=== PATIENT | female | born 1935 | race Caucasian/White ===

== ENCOUNTER 2017-07-14 10:38 | Inpatient (IN) | payer MEDICARE ==
[~2017-07-14] VITALS: Ht 162.6 cm; Wt 60.8 kg
[~2017-07-14 10:38] MED LIST: CARV12.5 PO; CARV25TA2 PO; CLOP75TA28 PO; INSU100V27 SQ; INSU100V7 SUBQ; LOSA50TA3 PO; PANT40TA3 PO; SIMV20TA PO
[2017-07-14 10:54] VITALS: BP 177/74; PULSE 64; RESP 18; O2SAT 97
--- NOTE | 2017-07-14 11:10 | ED.REPORT ---
HPI-Dyspnea / Wheezing Date of Service Jul 14, 2017 ED Provider: Jack Kendall MD Patient is an 81 year old female with a history of CHF, hypertension, CAD, diabetes and CVA who presents to the ED complaining of a productive cough. Associated symptoms include generalized weakness, decreased appetite and fatigue. The patient reports that she also has a blocked salivary gland that causes her pain when she tries to eat or drink. Patient denies fever or extremity swelling. She also notices that her cough is exacerbated with eating or drinking. The patient had pneumonia last month and has been off antibiotics for the past few weeks. She has been seen at multiple other hospitals where she has had a normal workup that no longer showed pneumonia. The patient saw her primary care physician 3 days ago after experiencing an episode of chest pressure that has since resolved. Nursing Notes Stated Complaint: WORSENING PNEUMONIA Chief Complaint: General Complaint Nursing Notes Reviewed: Yes Allergies: Coded Allergies: Penicillins (Verified Allergy, Intermediate, Rash, 07/14/17) NSAIDS (Non-Steroidal Anti-Inflamma (Verified Adverse Reaction, Severe, BLEEDING ULCERS, 07/14/17) GI bleeding aspirin (Verified Adverse Reaction, Severe, BLEEDING ULCERS, 07/14/17) amlodipine besylate (Verified Adverse Reaction, Intermediate, MIGRAINES, ) Scheduled Carvedilol (Carvedilol) 25 Mg Tablet 25 MG PO BID Clopidogrel (Clopidogrel) 75 Mg Tablet 75 MG PO QAM Insulin Glargine (Lantus U100 Insulin Vial) 100 Unit/Ml Vial 25 UNITS SUBQ QAM Insulin Regular, Human (Novolin-R U100 Insulin Vial) 100 Unit/1 Ml Vial 3-5 UNITS SQ DAILYWL Losartan Potassium (Cozaar) 50 Mg Tablet 50 MG PO BID Pantoprazole DR (Pantoprazole DR) 40 Mg Tablet.dr 40 MG PO QAM Simvastatin (Zocor) 20 Mg Tablet 20 MG PO HS Scheduled PRN Acetaminophen (Acetaminophen) 325 Mg Tablet 325 MG PO Q6H PRN PRN Headache Albuterol HFA (Proair HFA) 8.5 Gm Hfa.aer.ad 2 PUFFS INHALATION Q4H PRN PRN For Shortness of Breath General Time Seen by MD: 11:06 Chief Complaint Cough Hx Obtained From: Patient Arrived By: Walk-in Sudden in Onset?: No Onset Occurred: More than a week ago... Symptom Duration: Since onset Severity: Current: No pain currently Recent Healthcare: Recent doctor visit Similar Sx Previous: Yes Past Medical History Past Medical History CVA CHF CAD hypertension Reports: Stroke Past Surgical History Cataract surgery Pacemaker CABG Smoking History Former Smoker Social History Lives on [facility] Alcohol Use: Denies alcohol use Drug Use: Denies drug use Other Social History: Good social support, Ambulatory Status Independent Review of Systems Review of Systems Note: +decreased appetite Constitutional: Reports: Fatigue, Weakness - generalized, Denies: Chills, Fever Ears / Nose / Throat: Reports: Throat pain Respiratory: Reports: Prod cough, clear Cardiovascular: Denies: Chest pain Skin: Denies Itching, Denies Rash Complete sys rev & neg: except as marked. Physical Exam Initial Vital Signs Vital Signs (First) Date Time Temp Pulse Resp B/P Pulse Ox O2 Delivery O2 Flow Rate FiO2 07/14/17 10:54 36.4 64 18 177/74 97 Room Air Initial VS: Reviewed General/Constitutional: Awake, Alert Neck: Atraumatic, Supple small 1cm mass on the right side of the neck Respiratory / Chest: Atraumatic, Breath sounds NL, Breath sounds = bilat, No respiratory distress Cardiovascular: Heart rate NL, Regular rhythm, Heart sounds NL Lower Extremity / Pelvis / MS: Atraumatic, No edema Skin: Atraumatic, Color NL, No rash, Warm, Dry Neurologic: Oriented X3, Speech NL Head / Eyes: Atraumatic, Normocephalic, PERRL, EOMI Interpretation & Diagnostics Lab Results Interpretation Result Diagram: 07/14/17 1208 07/14/17 1208 Test 07/14/17 11:00 07/14/17 12:08 Urine Color Yellow (YELLOW) Urine Appearance Clear (CLEAR,HAZY) Urine pH 7.5 (5.0-8.0) Urine Specific [place] 1.006 (1.003-1.035) Urine Protein Negativemg/dL (NEG,TRACE) Urine Glucose (UA) Negativemg/dL (NEGATIVE) Urine Ketones Negativemg/dL (NEGATIVE) Urine Occult Blood Negative (NEGATIVE) Urine Nitrite Negative (NEGATIVE) Urine Bilirubin Negative (NEGATIVE) Urine Urobilinogen Normalmg/dL (NORMAL) Urine Leukocyte Esterase Negative (NEGATIVE) Urine RBC 0-2/hpf (0-2) Urine WBC 0-5/hpf (0-5) Urine Epithelial Cells Moderate/hpf (NONE-MOD) Urine Crystals None seen (NONE SEEN) Urine Bacteria None/hpf (NONE-FEW) Urine Hyaline Casts None/lpf (NONE) Urine Granular Casts None seen (NONE SEEN) Urine Waxy Casts None seen (NONE SEEN) Urine Red Blood Cell Casts None seen (NONE SEEN) Urine White Blood Cell Casts None seen (NONE SEEN) Urine Mucus None seen (None Seen) Urine Trichomonas None seen (NONE SEEN) Urine Yeast None (NONE SEEN) Urinalysis Comment None Urine Culture Reflexed Not indicated White Blood Count 6.9th/mm3 (3.8-10.1) Red Blood Count 4.46mil/mm3 (3.90-5.20) Hemoglobin 13.1g/dL (12.0-15.6) Hematocrit 39.1% (35.0-46.0) Mean Corpuscular Volume 87.7fL (81-100) Mean Corpuscular Hemoglobin 29.4pg (27.0-35.0) Mean Corpuscular Hemoglobin Concent 33.5% (32.0-37.0) Red Cell Distribution Width 13.6% (12.3-15.4) Platelet Count 235bil/L (150-400) Neutrophils (%) (Auto) 79.0% (40-74) Lymphocytes (%) (Auto) 14.2% (14-46) Monocytes (%) (Auto) 5.3% (4-12) Eosinophils (%) (Auto) 1.0% (0-5) Basophils (%) (Auto) 0.4% (0-3) D-Dimer 0.60mg/L FEU (<0.50) Sodium Level 132mEq/L (134-144) Potassium Level 4.3mEq/L (3.5-5.2) Chloride Level 94mEq/L (97-108) Carbon Dioxide Level 22mmol/L (18-29) Blood Urea Nitrogen 13mg/dL (8-27) Creatinine 0.72mg/dL (0.57-1.00) Estimat Glomerular Filtration Rate 111mL/min (>59) Glucose Level 87mg/dL (60-99) Calcium Level 9.9mg/dL (8.5-10.1) Total Bilirubin 0.5mg/dL (0.0-1.2) Aspartate Amino Transf (AST/SGOT) 18U/L (0-50) Alanine Aminotransferase (ALT/SGPT) 9U/L (0-32) Alkaline Phosphatase 62U/L (25-165) Troponin T 0.010ug/L (0.0-0.011) Pro-B-Type Natriuretic Peptide 1277pg/mL (0-738) Total Protein 7.0g/dL (6.4-8.4) Albumin 3.9g/dL (3.4-5.0) ECG Interpretation ECG Interpretation: paced rhythm Time: 11:11 Interpreted by: ED physician Normal ECG Interpretation: Normal rate (62) X-Ray Chest Interpretation Chest Xray Interpretation: IMPRESSION: 1. No evidence of pneumonia. Dictated by: Jagdish Hernández M.D. on 07/14/2017 at 11:57 Approved by: Jagdish Hernández M.D. on 07/14/2017 at 11:57 Interpretation / Wet Read by: Interpret - Radiologist CT Chest Interpretation IMPRESSION: 1. No evidence of central pulmonary embolism. Evaluation of distal subsegmental branches is limited due to respiratory motion artifact. 2. Bilateral groundglass opacities and septal thickening in the lungs compatible with pulmonary edema. Dictated by: Jagdish Hernández M.D. on 07/14/2017 at 14:54 Approved by: Jagdish Hernández M.D. on 07/14/2017 at 14:56 Study type: CT pulm angiogram Interpretation / Wet Read by: Interpret - Radiologist Re-Eval/Medical Decision Med Decision/Clinical Course Patient with a number of weeks of cough and shortness of breath and mild chest pain. Extensive history of coronary artery disease with no recent stress test. Also diabetic. Remote history of smoking. Imaging and lab her today consistent with some mild degree of congestive heart failure though ischemic pain is not excluded here in the emergency department. I believe it appeared of observation the hospital is appropriate to further elucidate elucidate the cause of his symptoms. Re-Evaluation/Progress #1: Time of Eval: 11:48 Re-Evaluation/Progress Note: Discussed plan for admit. Patient understands and agrees to plan. All questions were addressed. Re-Evaluation/Progress #2: Time of Eval: 15:29 Re-Evaluation/Progress Note: Discussed CT results. Consultation : Referral / Consult Name: Clau Porras MD Consulted With: Hospitalist Call Returned at: 15:30 Technology Education Instructor: Agrees with eval, Agrees with plan, Accepts admit Counseled Regarding: Diagnosis, Lab results, Need for admission Discharge & Departure Impression: Primary Impression: Chest pain Additional Impression: Congestive heart failure Disposition: ADMITTED TO HOSPITAL Discharge Condition All VS Reviewed: Yes Condition: Stable Referrals: Russell Gray MD (PCP) Scribe Attestation Portions of this note were transcribed by Arlen Clemente. I, Dr. Kendall personally performed the history, physical exam and medical decision-making; I reviewed and confirmed the accuracy of the information in the transcribed note. Signed by: Melissa Araujo, 07/14/17 copies to: Russell Gray MD, Kirk H MD Jul 14, 2017 11:10 Nory Clemente Jul 14, 2017 11:24
--- NOTE | 2017-07-14 11:59 | DRSVH ---
PROCEDURE: X-RAY CHEST, TWO VIEWS ([id number]) INDICATIONS: pneumonia TECHNIQUE: 2 views of the chest were acquired. COMPARISON: [facility], , CHEST 1 VIEW, 07/04/2017, 9:45. FINDINGS: Surgical changes and devices: Left chest wall dual-lead pacemaker and leads appear similar in positio n. Postsurgical changes are redemonstrated in the mediastinum. Lungs and pleura: No pleural effusions or pneumothorax. Visualized lungs are clear without consolid ation. Mediastinum: Mediastinal contours are unchanged. Heart size is normal. Bones and chest wall: No suspicious bony abnormalities. Soft tissues appear unremarkable. IMPRESSION: 1. No evidence of pneumonia. Dictated by: Jagdish Hernández M.D. on 07/14/2017 at 11:57 Approved by: Jagdish Hernández M.D. on 07/14/2017 at 11:57
[2017-07-14 12:33] LABS: BASOPHILS % (AUTO) 0.4 % (0-3); MONOCYTES % (AUTO) 5.3 % (4-12); Mean Corpuscular Hemoglobin 29.4 pg (27.0-35.0); Mean Corpuscular Volume 87.7 fL (81-100); Platelet Count 235 bil/L (150-400)
[2017-07-14 12:45] LABS: COLOR,URINE YELLOW (YELLOW)
[2017-07-14 12:46] LABS: APPEARANCE,URINE CLEAR (CLEAR,HAZY); OCCULT BLOOD,URINE NEGATIVE (NEGATIVE); PH,URINE 7.5 (5.0-8.0); UROBILINOGEN,URINE NORMAL (NORMAL)
[2017-07-14 12:57] LABS: TROPONIN T 0.01 ug/L (0.0-0.011)
[2017-07-14] MEDS ORDERED: INSU100V27 SQ (14:19)
[2017-07-14] MEDS ORDERED: ACET325T51 PO (14:32)
[2017-07-14] MEDS ORDERED: ALBU8.5H2 INHALATION (14:32)
--- NOTE | 2017-07-14 14:58 | DRSVH ---
PROCEDURE: CT ANGIO CHEST PULMONARY EMBOLISM ([id number]) INDICATIONS: chest pain TECHNIQUE: After the administration of intravenous contrast, 2 mm thick sections acquired from the pulmonary api yenni to the posterior costophrenic angles. 3-dimensional maximum intensity projection (MIP) coronal a nd sagittal reformats were then acquired through the thorax. For radiation dose reduction, the follo wing was used: automated exposure control, adjustment of mA and/or kV according to patient size. COMPARISON: [facility], CR, XR CHEST 2VW, 07/14/2017, 11:24. FINDINGS: Image quality: There is mild respiratory motion artifact. Pulmonary arteries: Pulmonary arteries are normal in size, and demonstrate no intraluminal filling d efects to suggest central pulmonary embolism. Evaluation of subsegmental branches is limited due to respiratory motion artifact. Lungs and pleura: There are patchy bilateral ground glass opacities in the lungs with mild septal th ickening. Mild dependent atelectasis is present bilaterally. No focal consolidation. No pleural ef fusions or pneumothorax. Central and peripheral airways are patent. Mediastinum: Heart size is normal, without pericardial effusion. There is extensive coronary arteri al vascular calcification. No mediastinal or hilar adenopathy. Thoracic aorta is normal in caliber a nd enhancement. Esophagus is normal in caliber, with a small hiatal hernia. Bones and chest wall: No suspicious bony lesions. Ribs and thoracic spine appear intact throughout. No axillary or supraclavicular adenopathy. Abdomen: Visualized upper abdominal solid organs appear normal in the early arterial phase of enhanc ement. IMPRESSION: 1. No evidence of central pulmonary embolism. Evaluation of distal subsegmental branches is limited due to respiratory motion artifact. 2. Bilateral groundglass opacities and septal thickening in the lungs compatible with pulmonary melanie a. Dictated by: Jagdish Hernández M.D. on 07/14/2017 at 14:54 Approved by: Jagdish Hernández M.D. on 07/14/2017 at 14:56
[2017-07-14] MEDS ORDERED: Polyethylene Glycol (PEG) 17 Gm Powder PO PRN (16:10)
[2017-07-14] MEDS ORDERED: Alum-Mag Hydrox-Simeth 30 mL Suspension PO PRN (16:10)
[2017-07-14] MEDS ORDERED: Senna-Docusate 8.6-50 mg Tablet PO PRN (16:10)
[2017-07-14] MEDS ORDERED: Nitroglycerin 2% 1 Gm Ointment TOPICAL ONE (16:20)
[2017-07-14 16:28] VITALS: BP 177/112; PULSE 65; RESP 16; O2SAT 98
--- NOTE | 2017-07-14 16:29 | PCM.HPMED ---
Subjective Date of Service Jul 14, 2017 Primary Provider: Admitting Physician: Clau Porras MD Primary Care Physician: Russell Gray MD Attending Physician: Clau Porras MD Admit Status: From the Emergency Department, Full Admit, Remote Telemetry Chief Complaint: Shortness of breath, cough History of Present Illness: Is a pleasant 81-year-old female who over the past month has been having progressive symptoms of increasing shortness of breath. She notes cough sometimes productive of some white sputum. She denies any fevers or chills. She was placed on some antibiotics with no improvement in her symptoms by her primary care provider. She also feels more short of breath when she is lying down at night. She also notes that she has some chest pressure and arm pressure occurring at times mostly when she is lying down. She notes that the chest pressure may last for an hour or so. She does have a history of coronary artery disease with a CABG 4 in July 2000 and a pacemaker placed in 2006. Her turning sander tender is Dr. Hermes Fenton. Evaluation in the emergency room revealed a slightly high d-dimer chest x-ray was negative. She then had CTA of chest which showed no evidence of central pulmonary emboli. Some respiratory motion artifact to evaluate the distal sub-segmental branches. But did see bilateral groundglass opacities and septal thickening in the lungs compatible with pulmonary edema. Her troponin was noted to be 0.01. Review of Systems: Patient does admit to some mild nausea. Denies any vomiting denies any diaphoresis. All other review of systems are negative except for as in history of present illness. Allergies Coded Allergies: Penicillins (Verified Allergy, Intermediate, Rash, 07/14/17) NSAIDS (Non-Steroidal Anti-Inflamma (Verified Adverse Reaction, Severe, BLEEDING ULCERS, 07/14/17) GI bleeding aspirin (Verified Adverse Reaction, Severe, BLEEDING ULCERS, 07/14/17) amlodipine besylate (Verified Adverse Reaction, Intermediate, MIGRAINES, ) Home Medications Scheduled Carvedilol (Carvedilol) 25 Mg Tablet 25 MG PO BID Clopidogrel (Clopidogrel) 75 Mg Tablet 75 MG PO QAM Insulin Glargine (Lantus U100 Insulin Vial) 100 Unit/Ml Vial 25 UNITS SUBQ QAM Insulin Regular, Human (Novolin-R U100 Insulin Vial) 100 Unit/1 Ml Vial 3-5 UNITS SQ DAILYWL Losartan Potassium (Cozaar) 50 Mg Tablet 50 MG PO BID Pantoprazole DR (Pantoprazole DR) 40 Mg Tablet.dr 40 MG PO QAM Simvastatin (Zocor) 20 Mg Tablet 20 MG PO HS Scheduled PRN Acetaminophen (Acetaminophen) 325 Mg Tablet 325 MG PO Q6H PRN PRN Headache Albuterol HFA (Proair HFA) 8.5 Gm Hfa.aer.ad 2 PUFFS INHALATION Q4H PRN PRN For Shortness of Breath PMH Past Medical History CVA CHF CAD hypertension Reports: Stroke Past Surgical History Cataract surgery Pacemaker CABG Family History Has a family history of sun who in his late 30s of congestive heart failure. Daughter who was diagnosed with a brain aneurysm. Granddaughter who has polycystic kidney disease. Social History Hx Alcohol Use: No Hx Substance Use: No Hx Tobacco Use: Yes (quit in 1974) Smoking Status: Former Smoker (quit 40 years ago) Living Arrangement: with Family Exam Vital Signs Vital Sign - Last Date Time Temp Pulse Resp B/P Pulse Ox O2 Delivery O2 Flow Rate FiO2 07/14/17 10:54 36.4 64 18 177/74 97 Room Air Exam Constitutional: Elderly female who appears comfortable and conversant but does have some episodic coughing Head: Normocephalic atraumatic Eyes: PERRLA DC EOMI Mouth: No lesions Neck: Carotid specific workup or wheezes Chest: Does reveal crackles at her bases Cor: Regular rate and rhythm S1-S2 without murmur Abdomen: Soft nontender bowel sounds present Extremities: No pedal edema Skin: No rashes Psych: Mood and affect are appropriate Neuro: Alert and oriented 3, motor strength is intact bilaterally Lab and Diagnostics Labs Laboratory Tests 72 Hours Test 07/14/17 11:00 07/14/17 12:08 Urine Color Yellow (YELLOW) Urine Appearance Clear (CLEAR,HAZY) Urine pH 7.5 (5.0-8.0) Urine Specific [place] 1.006 (1.003-1.035) Urine Protein Negativemg/dL (NEG,TRACE) Urine Glucose (UA) Negativemg/dL (NEGATIVE) Urine Ketones Negativemg/dL (NEGATIVE) Urine Occult Blood Negative (NEGATIVE) Urine Nitrite Negative (NEGATIVE) Urine Bilirubin Negative (NEGATIVE) Urine Urobilinogen Normalmg/dL (NORMAL) Urine Leukocyte Esterase Negative (NEGATIVE) Urine RBC 0-2/hpf (0-2) Urine WBC 0-5/hpf (0-5) Urine Epithelial Cells Moderate/hpf (NONE-MOD) Urine Crystals None seen (NONE SEEN) Urine Bacteria None/hpf (NONE-FEW) Urine Hyaline Casts None/lpf (NONE) Urine Granular Casts None seen (NONE SEEN) Urine Waxy Casts None seen (NONE SEEN) Urine Red Blood Cell Casts None seen (NONE SEEN) Urine White Blood Cell Casts None seen (NONE SEEN) Urine Mucus None seen (None Seen) Urine Trichomonas None seen (NONE SEEN) Urine Yeast None (NONE SEEN) Urinalysis Comment None Urine Culture Reflexed Not indicated White Blood Count 6.9th/mm3 (3.8-10.1) Red Blood Count 4.46mil/mm3 (3.90-5.20) Hemoglobin 13.1g/dL (12.0-15.6) Hematocrit 39.1% (35.0-46.0) Mean Corpuscular Volume 87.7fL (81-100) Mean Corpuscular Hemoglobin 29.4pg (27.0-35.0) Mean Corpuscular Hemoglobin Concent 33.5% (32.0-37.0) Red Cell Distribution Width 13.6% (12.3-15.4) Platelet Count 235bil/L (150-400) Neutrophils (%) (Auto) 79.0% (40-74) Lymphocytes (%) (Auto) 14.2% (14-46) Monocytes (%) (Auto) 5.3% (4-12) Eosinophils (%) (Auto) 1.0% (0-5) Basophils (%) (Auto) 0.4% (0-3) D-Dimer 0.60mg/L FEU (<0.50) Sodium Level 132mEq/L (134-144) Potassium Level 4.3mEq/L (3.5-5.2) Chloride Level 94mEq/L (97-108) Carbon Dioxide Level 22mmol/L (18-29) Blood Urea Nitrogen 13mg/dL (8-27) Creatinine 0.72mg/dL (0.57-1.00) Estimat Glomerular Filtration Rate 111mL/min (>59) Glucose Level 87mg/dL (60-99) Calcium Level 9.9mg/dL (8.5-10.1) Total Bilirubin 0.5mg/dL (0.0-1.2) Aspartate Amino Transf (AST/SGOT) 18U/L (0-50) Alanine Aminotransferase (ALT/SGPT) 9U/L (0-32) Alkaline Phosphatase 62U/L (25-165) Troponin T 0.010ug/L (0.0-0.011) Pro-B-Type Natriuretic Peptide 1277pg/mL (0-738) Total Protein 7.0g/dL (6.4-8.4) Albumin 3.9g/dL (3.4-5.0) Result Diagram: 07/14/17 1208 07/14/17 1208 X-Rays, CTs and MRIs PROCEDURE: CT ANGIO CHEST PULMONARY EMBOLISM ([id number]) INDICATIONS: chest pain TECHNIQUE: After the administration of intravenous contrast, 2 mm thick sections acquired from the pulmonary apices to the posterior costophrenic angles. 3-dimensional maximum intensity projection (MIP) coronal and sagittal reformats were then acquired through the thorax. For radiation dose reduction, the following was used: automated exposure control, adjustment of mA and/or kV according to patient size. COMPARISON: [facility], CR, XR CHEST 2VW, 07/14/2017, 11:24. FINDINGS: Image quality: There is mild respiratory motion artifact. Pulmonary arteries: Pulmonary arteries are normal in size, and demonstrate no intraluminal filling defects to suggest central pulmonary embolism. Evaluation of subsegmental branches is limited due to respiratory motion artifact. Lungs and pleura: There are patchy bilateral ground glass opacities in the lungs with mild septal thickening. Mild dependent atelectasis is present bilaterally. No focal consolidation. No pleural effusions or pneumothorax. Central and peripheral airways are patent. Mediastinum: Heart size is normal, without pericardial effusion. There is extensive coronary arterial vascular calcification. No mediastinal or hilar adenopathy. Thoracic aorta is normal in caliber and enhancement. Esophagus is normal in caliber, with a small hiatal hernia. Bones and chest wall: No suspicious bony lesions. Ribs and thoracic spine appear intact throughout. No axillary or supraclavicular adenopathy. Abdomen: Visualized upper abdominal solid organs appear normal in the early arterial phase of enhancement. IMPRESSION: 1. No evidence of central pulmonary embolism. Evaluation of distal subsegmental branches is limited due to respiratory motion artifact. 2. Bilateral groundglass opacities and septal thickening in the lungs compatible with pulmonary edema. Dictated by: Jagdish Hernández M.D. on 07/14/2017 at 14:54 Approved by: Jagdish Hernández M.D. on 07/14/2017 at 14:56 12-lead ECG AV dual paced complexes with a rate of 62 and QTC 42 Cardiac Echo Impressions Echocardiogram Report Name: AMANDEEP VILCHIS Study Date: 08/24/2012 Height: 64 in Hospital Exam Location: [facility] Weight: 130 lb Gender: Female BSA: 1.6 meters2 : 1935 Age: 77 yrs BP: 110/52 mmHg Reason For Study: Chest pain History: CABG X 4 IN 1999 Ordering Physician: Hermes Fenton Performed By: Carlos Wright Interpretation Summary Left ventricular systolic function is normal. The ejection fraction is estimated to be 55-60%. There is a pacemaker lead in the right ventricle. Right atrial size is normal. There is mild to moderate tricuspid regurgitation. Compared to the prior echo exam, there has been no change in TR severity. No other signficant changes since last echo study of 12/11/2010. Assessment & Plan # Acute congestive heart failure, unclear if diastolic versus systolic, present on admission -Get current echocardiogram study -IV Lasix 40 mg twice a day -Apply nitro paste topically half-inch 1 -Serial cardiac enzymes -Placed on telemetry -Continue with Plavix -Check Lexiscan nuclear stress test in a.m. -Continue with Coreg and losartan #History of coronary artery disease, present on admission -We will check nuclear Lexiscan stress test #Type II diabetes, chronic, present on admission -Continue her Lantus dosing at half dose because will be nothing by mouth for stress test -Placed on subcutaneous correction dose insulin -Check hemoglobin A1c -Continue with simvastatin #DVT prophylaxis -SCDs and subcutaneous Lovenox #CODE STATUS Full code GI Prophylaxis: Proton Pump Inhibitor VTE Prophylaxis: Sub-Q Enoxaparin, SCDs Resuscitation Status: CPR: Attempt Resuscitation Time spent 60 minutes Clau Porras MD Jul 14, 2017 16:29
--- NOTE | 2017-07-14 16:38 | PCM.ADCARE ---
Advance Care Planning Note Purpose of Encounter: Goals of care Parties in Attendance: Patient Decisional Capacity: Patient has decisional capacity Subjective: Patient comes in with acute congestive heart failure. Objective: Physical exam as in history and physical Goals of Care Determinations: Patient wishes initially to have CPR and to be intubated if an acute problem happens. Plan: Plan will be to perform interventions if required for her health CODE STATUS: Full code Time Spent Adv.Care Plannin minutes Adv. Care Plan Documenation: She notes has documentation at home Clau Porras MD Jul 14, 2017 16:38
[2017-07-14 16:39] VITALS: PULSE 65
[2017-07-14] MEDS: Furosemide 10 mg/mL 4 mL Inj IVPUSH SCH (17:00)
[2017-07-14] MEDS: Sodium Chloride LOK Flush 10 mL Syringe IVFLUSH SCH (17:01)
[2017-07-14 17:02] LABS: Magnesium 1.9 mg/dL (1.6-2.6)
[2017-07-14] MEDS ORDERED: Glucose 40% Oral Gel 15 Gm Tube PO PRN (17:05)
[2017-07-14] MEDS ORDERED: Dextrose 10% 250 ML IV PRN (17:15)
--- NOTE | 2017-07-14 18:17 | NUR ---
Admit: Arrived to [facility] @ approx 1625 via stretcher. Ambulated to bed, stand up scale obtained. Denies chest pain, shortness of breath, nausea, dizziness and lightheadedness at time of arrival. Alert & oriented. Oriented to room and call light system. Bed in low and locked position, bed rails up x2, yellow non-skid socks on for safety, call light within reach. Encouraged to call for assistance to BR. Patient states she only wore one hearing aid to hospital.
[2017-07-14] MEDS: Insulin LISPRO 300 Unit/3 mL Inj SUBQ SCH ×2 (18:27→21:50)
[2017-07-14 18:40] LABS: Creatine Kinase 28 U/L (21-215); TROPONIN T < 0.010 ug/L (0.0-0.011)
[2017-07-14 20:00] VITALS: PULSE 65
[2017-07-14 21:00] VITALS: BP 113/61; PULSE 61; RESP 18; O2SAT 95
[2017-07-15] VITALS (8 sets, daily range): BP systolic 120–151; BP diastolic 66–75; PULSE 60–67; RESP 16–18; O2SAT 95–97
[2017-07-15 00:33] LABS: Creatine Kinase 25 U/L (21-215)
[2017-07-15] MEDS: Sodium Chloride LOK Flush 10 mL Syringe IVFLUSH SCH ×3 (00:49→16:30)
[2017-07-15 05:36] LABS: BASOPHILS % (AUTO) 0.7 % (0-3); EOSINOPHILS % (AUTO) 3.6 % (0-5); MONOCYTES % (AUTO) 11.2 % (4-12); Mean Corpuscular Hemoglobin 29.4 pg (27.0-35.0); Mean Corpuscular Volume 87.6 fL (81-100); NEUTROPHILS % (AUTO) 68.5 % (40-74); Platelet Count 234 bil/L (150-400)
--- NOTE | 2017-07-15 05:54 | NUR ---
Sugars, Cough: Denies chest pain through the night. Does complain of a productive cough she has had since "June 20". Blood sugar at HS was 197; no coverage. Pt states sugars are up and down. Checked again at 0300 and sugar was 83. By 0500 it was 72 and pt was feeling like her sugar was low. Pt is NPO for stress test today, 125 ml bolus of D10 was ordered and is infusing at this time. Addendum: 07/15/17 at 0632 by GIBSON JARQUIN RN Sugar increased to 165 after intervention.
[2017-07-15 06:24] LABS: Creatine Kinase 23 U/L (21-215)
[2017-07-15] MEDS ORDERED: Insulin GLARgine 100 Unit/mL Syringe SUBQ SCH (08:00)
[2017-07-15] MEDS: Insulin LISPRO 300 Unit/3 mL Inj SUBQ SCH ×4 (09:08→22:00)
[2017-07-15] MEDS: Insulin GLARgine 100 Unit/mL Syringe SUBQ SCH ×2 (09:08→11:55)
[2017-07-15] MEDS: Furosemide 10 mg/mL 4 mL Inj IVPUSH SCH ×3 (09:08→17:45)
[2017-07-15] MEDS: Pantoprazole 40 mg ER24 Tablet PO SCH (09:18)
--- NOTE | 2017-07-15 09:19 | NUR ---
Off unit Pt off unit to stress test, [employer] [facility] aware. Addendum: 07/15/17 at 1146 by KENAN REINOSO RN Pt back on unit, [employer] [facility] aware.
--- NOTE | 2017-07-15 10:34 | NUR ---
Social Work-initial assessment/ readiness for discharge/ multidisciplinary rounds: Data:See initial assessment. Pt is a 81 y/o female who was admitted on 07/14/17 for chest pain per H&P. Pt's insurance is [employer] and PCP is Russell Gray MD. EMR Reviewed. pt's readmission score is 3-high risk. SW met with pt at bedside, SW role explained. Pt is alert and oriented x3. Pt resides at home with her on [facility] where she remains independent with ADLS. Pt does not drive and uses either a fww or cane at baseline. Pt has no HH or SNF history. Pt has no salvage determiner care insurance or VA benefits. SW discussed DPOA/ advanced directive, pt confirms this has been completed, SW encouraged a copy to be brought in. No concerns noted in morning rounds regarding pt's capacity for self care per RN or MD. Pt has been up independent in her room. SW provided pt with discharge planning checklist and encouraged pt to call with questions, phone number provided on white board in room. Pt confirms her will provide transport home. Pt will need a priority boarding pass at discharge for the [place]. No other discharge needs identified. SW will continue to follow. Assessment:Pt who is independent at baseline. Plan:Pt to discharge home when medically stable via POV. Pt will need a priority [place] pass [place] No other discharge needs identified. SW will continue to follow. LICO Alrbight Addendum: 07/15/17 at 1042 by LAMAR MELGOZA Amended: Links added.
--- NOTE | 2017-07-15 14:06 | PCM.PNMED ---
Subjective Date of Service Jul 15, 2017 Subjective Patient feels fatigues that she did not sleep all last night. She notes some improvement in her breathing. Exam Vital Signs Vital Sign - Last Date Time Temp Pulse Resp B/P Pulse Ox O2 Delivery O2 Flow Rate FiO2 07/15/17 12:41 36.4 63 16 135/69 96 Room Air Intake and Output 07/14/17 07/14/17 07/15/17 Cumulative From/Thru 15:00 23:00 07:00 07/14/17 10:54 - 07/15/17 05:58 Intake Total 375 ml 375 ml Output Total 975 ml 975 ml Balance -600 ml -600 ml Intake Oral 250 ml 250 ml IV Total 125 ml 125 ml Output Urine Total 975 ml 975 ml # Bowel Movements 0 0 Exam Constitutional: Elderly female in no acute distress Head: Normocephalic atraumatic Chest improvement in crackles at bases Cor: Regular rate and rhythm S1-S2 without murmur Abdomen: Soft nontender bowel sounds present Extremities: No pedal edema Psych: Mood and affect appropriate Skin: No rashes Neuro: Alert and oriented 3 strength is intact bilaterally Lab and Diagnostics Laboratory Tests 72 Hours Test 07/14/17 11:00 07/14/17 12:08 07/14/17 16:41 07/14/17 18:09 Urine Color Yellow (YELLOW) Urine Appearance Clear (CLEAR,HAZY) Urine pH 7.5 (5.0-8.0) Urine Specific Effie 1.006 (1.003-1.035) Urine Protein Negativemg/dL (NEG,TRACE) Urine Glucose (UA) Negativemg/dL (NEGATIVE) Urine Ketones Negativemg/dL (NEGATIVE) Urine Occult Blood Negative (NEGATIVE) Urine Nitrite Negative (NEGATIVE) Urine Bilirubin Negative (NEGATIVE) Urine Urobilinogen Normalmg/dL (NORMAL) Urine Leukocyte Esterase Negative (NEGATIVE) Urine RBC 0-2/hpf (0-2) Urine WBC 0-5/hpf (0-5) Urine Epithelial Cells Moderate/hpf (NONE-MOD) Urine Crystals None seen (NONE SEEN) Urine Bacteria None/hpf (NONE-FEW) Urine Hyaline Casts None/lpf (NONE) Urine Granular Casts None seen (NONE SEEN) Urine Waxy Casts None seen (NONE SEEN) Urine Red Blood Cell Casts None seen (NONE SEEN) Urine White Blood Cell Casts None seen (NONE SEEN) Urine Mucus None seen (None Seen) Urine Trichomonas None seen (NONE SEEN) Urine Yeast None (NONE SEEN) Urinalysis Comment None Urine Culture Reflexed Not indicated White Blood Count 6.9th/mm3 (3.8-10.1) Red Blood Count 4.46mil/mm3 (3.90-5.20) Hemoglobin 13.1g/dL (12.0-15.6) Hematocrit 39.1% (35.0-46.0) Mean Corpuscular Volume 87.7fL (81-100) Mean Corpuscular Hemoglobin 29.4pg (27.0-35.0) Mean Corpuscular Hemoglobin Concent 33.5% (32.0-37.0) Red Cell Distribution Width 13.6% (12.3-15.4) Platelet Count 235bil/L (150-400) Neutrophils (%) (Auto) 79.0% (40-74) Lymphocytes (%) (Auto) 14.2% (14-46) Monocytes (%) (Auto) 5.3% (4-12) Eosinophils (%) (Auto) 1.0% (0-5) Basophils (%) (Auto) 0.4% (0-3) Prothrombin Time 10.7sec (8.1-12.5) Prothromb Time International Ratio 1.00ratio Activated Partial Thromboplast Time 25.7sec (22.8-33.0) D-Dimer 0.60mg/L FEU (<0.50) Sodium Level 132mEq/L (134-144) Potassium Level 4.3mEq/L (3.5-5.2) Chloride Level 94mEq/L (97-108) Carbon Dioxide Level 22mmol/L (18-29) Blood Urea Nitrogen 13mg/dL (8-27) Creatinine 0.72mg/dL (0.57-1.00) Estimat Glomerular Filtration Rate 111mL/min (>59) Glucose Level 87mg/dL (60-99) Calcium Level 9.9mg/dL (8.5-10.1) Magnesium Level 1.9mg/dL (1.6-2.6) Total Bilirubin 0.5mg/dL (0.0-1.2) Aspartate Amino Transf (AST/SGOT) 18U/L (0-50) Alanine Aminotransferase (ALT/SGPT) 9U/L (0-32) Alkaline Phosphatase 62U/L (25-165) Troponin T 0.010ug/L (0.0-0.011) < 0.010ug/L (0.0-0.011) Pro-B-Type Natriuretic Peptide 1277pg/mL (0-738) Total Protein 7.0g/dL (6.4-8.4) Albumin 3.9g/dL (3.4-5.0) Thyroid Stimulating Hormone (TSH) 1.760uIU/mL (0.450-4.500) Total Creatine Kinase 28U/L (21-215) Creatine Kinase MB 2.0ng/mL (0.0-5.3) Creatine Kinase MB % % (0.0-5.0) Test 07/15/17 00:04 07/15/17 05:17 Total Creatine Kinase 25U/L (21-215) 23U/L (21-215) Creatine Kinase MB 1.6ng/mL (0.0-5.3) 1.4ng/mL (0.0-5.3) Creatine Kinase MB % % (0.0-5.0) % (0.0-5.0) Troponin T 0.010ug/L (0.0-0.011) 0.010ug/L (0.0-0.011) White Blood Count 7.0th/mm3 (3.8-10.1) Red Blood Count 4.29mil/mm3 (3.90-5.20) Hemoglobin 12.6g/dL (12.0-15.6) Hematocrit 37.6% (35.0-46.0) Mean Corpuscular Volume 87.6fL (81-100) Mean Corpuscular Hemoglobin 29.4pg (27.0-35.0) Mean Corpuscular Hemoglobin Concent 33.5% (32.0-37.0) Red Cell Distribution Width 13.5% (12.3-15.4) Platelet Count 234bil/L (150-400) Neutrophils (%) (Auto) 68.5% (40-74) Lymphocytes (%) (Auto) 16.0% (14-46) Monocytes (%) (Auto) 11.2% (4-12) Eosinophils (%) (Auto) 3.6% (0-5) Basophils (%) (Auto) 0.7% (0-3) Sodium Level 133mEq/L (134-144) Potassium Level 3.5mEq/L (3.5-5.2) Chloride Level 94mEq/L (97-108) Carbon Dioxide Level 24mmol/L (18-29) Blood Urea Nitrogen 18mg/dL (8-27) Creatinine 0.92mg/dL (0.57-1.00) Estimat Glomerular Filtration Rate 84mL/min (>59) Glucose Level 74mg/dL (60-99) Calcium Level 9.0mg/dL (8.5-10.1) Total Bilirubin 0.4mg/dL (0.0-1.2) Aspartate Amino Transf (AST/SGOT) 14U/L (0-50) Alanine Aminotransferase (ALT/SGPT) 9U/L (0-32) Alkaline Phosphatase 56U/L (25-165) Pro-B-Type Natriuretic Peptide 1502pg/mL (0-738) Total Protein 5.9g/dL (6.4-8.4) Albumin 3.6g/dL (3.4-5.0) Triglycerides Level 72mg/dL (0-149) Cholesterol Level 136mg/dL (100-199) LDL Cholesterol, Calculated 52mg/dL (0-99) VLDL Cholesterol 14.400mg/dL HDL Cholesterol 70mg/dL (>39) Cholesterol/HDL Ratio 1.94 (0.0-4.4) Result Diagram: 07/15/1751607/15/17516 X-Rays, CTs and MRIs PROCEDURE: CT ANGIO CHEST PULMONARY EMBOLISM ([id number]) INDICATIONS: chest pain TECHNIQUE: After the administration of intravenous contrast, 2 mm thick sections acquired from the pulmonary apices to the posterior costophrenic angles. 3-dimensional maximum intensity projection (MIP) coronal and sagittal reformats were then acquired through the thorax. For radiation dose reduction, the following was used: automated exposure control, adjustment of mA and/or kV according to patient size. COMPARISON: [facility], CR, XR CHEST 2VW, 07/14/2017, 11:24. FINDINGS: Image quality: There is mild respiratory motion artifact. Pulmonary arteries: Pulmonary arteries are normal in size, and demonstrate no intraluminal filling defects to suggest central pulmonary embolism. Evaluation of subsegmental branches is limited due to respiratory motion artifact. Lungs and pleura: There are patchy bilateral ground glass opacities in the lungs with mild septal thickening. Mild dependent atelectasis is present bilaterally. No focal consolidation. No pleural effusions or pneumothorax. Central and peripheral airways are patent. Mediastinum: Heart size is normal, without pericardial effusion. There is extensive coronary arterial vascular calcification. No mediastinal or hilar adenopathy. Thoracic aorta is normal in caliber and enhancement. Esophagus is normal in caliber, with a small hiatal hernia. Bones and chest wall: No suspicious bony lesions. Ribs and thoracic spine appear intact throughout. No axillary or supraclavicular adenopathy. Abdomen: Visualized upper abdominal solid organs appear normal in the early arterial phase of enhancement. IMPRESSION: 1. No evidence of central pulmonary embolism. Evaluation of distal subsegmental branches is limited due to respiratory motion artifact. 2. Bilateral groundglass opacities and septal thickening in the lungs compatible with pulmonary edema. Dictated by: Jagdish Hernández M.D. on 07/14/2017 at 14:54 Approved by: Jagdish Hernández M.D. on 07/14/2017 at 14:56 12-lead ECG AV dual paced complexes with a rate of 62 and QTC 42 Cardiac Echo Impressions Echocardiogram Report Name: AMANDEEP VILCHIS Study Date: 08/24/2012 Height: 64 in Hospital Exam Location: [facility] Weight: 130 lb Gender: Female BSA: 1.6 meters2 : 1935 Age: 77 yrs BP: 110/52 mmHg Reason For Study: Chest pain History: CABG X 4 IN 1999 Ordering Physician: Hermes Fenton Performed By: Carlos Wright Interpretation Summary Left ventricular systolic function is normal. The ejection fraction is estimated to be 55-60%. There is a pacemaker lead in the right ventricle. Right atrial size is normal. There is mild to moderate tricuspid regurgitation. Compared to the prior echo exam, there has been no change in TR severity. No other signficant changes since last echo study of 12/11/2010. Assessment & Plan # Acute congestive heart failure, unclear if diastolic versus systolic, present on admission -Get current echocardiogram study done -IV Lasix 40 mg twice a day -Serial cardiac enzymes -Placed on telemetry -Continue with Plavix -Check Lexiscan nuclear stress test which is done today and results pending -Continue with Coreg and losartan #History of coronary artery disease, present on admission -We will check nuclear Lexiscan stress test was done today but results pending #Type II diabetes, chronic, present on admission -Continue her Lantus dosing at half dose because will be nothing by mouth for stress test -Placed on subcutaneous correction dose insulin -Check hemoglobin A1c -Continue with simvastatin #DVT prophylaxis -SCDs and subcutaneous Lovenox #CODE STATUS Full code GI Prophylaxis: Proton Pump Inhibitor VTE Prophylaxis: Sub-Q Enoxaparin, SCDs Resuscitation Status: CPR: Attempt Resuscitation Time spent 20 minutes Clau Porras MD Jul 15, 2017 14:06
--- NOTE | 2017-07-15 15:46 | DRSVH ---
[facility] [address] [place] [address] Echocardiogram Report Name: AMANDEEP VILCHIS Date: 07/15/2017 Height: 6 4 in Hospital Exam Location: [facility] Weight: 1 25 lb Gender: Female BSA: 1.6 m2 : 1935 Age: 81 yrs BP: 120/7 0 mmHg Reason For Study: HEART FAILURE Ordering Physician: [facility] Performed By: Kera Brand Referring Physician: True Brenner Interpretation Summary The left ventricle is normal in size. The left ventricular ejection fraction is normal. The ejection fraction is estimated to be 55-60%. LVEF hast not changed since prior study. There are no obvious focal wall motion abnormalities noted but poor endocardial definition reduces the sensitivity for the detection of such. The right ventricle is not well visualized. There is a pacemaker lead in the right ventricle. The left atrial size is normal. Right atrial size is normal. A patent foramen ovale is suspected. There is no significant valvular heart disease. The aortic root is normal size. Procedure: A two-dimensional transthoracic echocardiogram with color flow and Doppler was performed. The study quality was technically adequate. Comparison is made with the echocardiogram of 12/11/10. The patient has a paced rhythm. Left Ventricle: The left ventricle is normal in size. There is normal left ventricular wall thickness. The left ventricular ejection fraction is normal. The ejection fraction is estimated to be 55-60%. There are no obvious focal wall motion abnormalities noted but poor endocardial definition reduces the sensitivity for the detection of such. Diastolic function could not be accurately assessed due to paced rhythm. Right Ventricle: The right ventricle is not well visualized. There is a pacemaker lead in the right ventricle. Atria: The left atrial size is normal. Right atrial size is normal. A patent foramen ovale is suspected. Mitral Valve: The mitral valve is normal. There is mild mitral annular calcification. There is trace mitral regurgitation. Aortic Valve: The aortic valve is trileaflet. The aortic valve is slightly calcified. The aortic valve opens well. No aortic regurgitation is present. Tricuspid Valve: The tricuspid valve is normal. There is mild tricuspid regurgitation. Pulmonic Valve: The pulmonic valve leaflets are thin and pliable; valve motion is normal. There is trace pulmonic regurgitation. There is no significant valvular heart disease. Great Vessels: The aortic root is normal size. The ascending aorta is normal in size. The aortic arch could not be visualized. The pulmonary is not well visualized. The inferior vena cava was not well visualized. Pericardium/ Pleura There is no pericardial effusion. There is an anterior echo-free space consistent with a fat pad. There is no pleural effusion. MMode/2D Measurements & Calculations LVIDd: 4.5 cm RA long axis LVOT diam LVIDs: 2.7 cm LA A2 area: 14.9 cm FS: 38.8 % LA A4 area: 16.2 cm RA area AoV Opening EPSS: 0.73 cm LA length (vol): 4.7 cm IVSd: 0.90 cm LA vol: 43.6 ml : 10.2 cm Ao root diam LVPWd: 0.77 cm LA vol index RA vol : 22.7 ml asc Aorta : 27.2 ml/m2 RA Diam: 2.9 cm : 14.2 mm2 LV tuttle. diameter/BSA LV sys. diameter/BSA (cm/m^2): 2.8 (cm/m^2): 1.7 Doppler Measurements & Calculations Ao V2 max MV E max jimmy MV E/A: 0.43 TR max jimmy : 97.1 cm/sec : 35.9 cm/sec Med Peak E' Jimmy : 198.3 cm/sec Ao max PG MV A max jimmy TR max PG : 3.8 mmHg : 84.3 cm/sec E/E' med: 9.7 : 15.7 mmHg Ao mean PG MV P1/2t: 86.0 msec Lat Peak E' Jimmy PA V2 max : 64.1 cm/sec LVOT Max Jimmy E/E' lat: 4.8 PA mean PG : 83.1 cm/sec E/e' average: 7.3 MONO(I,D): 2.0 cm PA Accel Time sev ratio : 0.10 sec MV dec time MV P1/2t max jimmy Ao V2 mean LV V1 max PG : 0.29 sec : 72.7 cm/sec Ao V2 VTI: 18.4 cm LV V1 VTI MVA(P1/2t): 2.6 cm2 : 16.3 cm MONO(V,D): 1.9 cm2 PA V2 mean MONO indexed to BSA : 47.9 cm/sec (cm^2/m^2): 1.2 Reading Physician:PM
--- NOTE | 2017-07-15 16:14 | NUR ---
NUTRITION CONSULT Provided pt with CHF education, pt reports she previously had low salt diet instruction. Reviewed limiting use of salt shaker, does not like Mrs. Kirk. Provided pt with handouts.
--- NOTE | 2017-07-15 17:20 | DRSVH ---
PROCEDURE: 1 DAY PHARMACOLOGICAL STRESS TEST INDICATIONS: Chest Pain. COMPARISON: None. Radiopharmaceutical: Stress dose 25.7 mCi of technetium 99 tetrofosmin Rest dose 8.7 mCi of technetium 99 tetrofosmin Patient presentation: The patient is a 81-year-old woman with coronary artery disease status post CAB G in 1999, diabetes, hypertension, hyperlipidemia, congestive heart failure and history of pacemaker implant. FINDINGS: Pharmacologic stress test: Following informed consent Lexiscan was infused per protocol. Patient comp lained of lightheadedness. EKG showed that she was A-sensed and V-paced with occasional PACs. EKG was uninterpretable due to chronic RV pacing. Patient developed 5/10 chest pressure during the st ress test. Raw data: Normal myocardial tracer uptake. Lung heart ratio is grossly normal. Myocardial perfusion imaging: There is a small size mild intensity fixed apical perfusion defect. It is most consistent with apical thinning artifact. Quantitative gated SPECT: at peak stress ejection fraction 70%. Rest ejection fraction 60%. There is septal hypokinesis which in the right clinical setting could be due to chronic RV pacing. IMPRESSION: Low risk pharmacologic stress test with myocardial perfusion imaging. No evidence of ischemia or prior infarct. Chronic RV pacing with associated septal hypokinesis. Otherwise normal wall motion and left ventricul ar systolic function. Compared to prior stress chest performed September 09, 2011, apical thinning artifact is newly describe d. Paradoxic septal movement is unchanged from prior. Dictated by: Caro Edward M.D. on 07/15/2017 at 17:11 Approved by: Caro Edward M.D. on 07/15/2017 at 17:18
--- NOTE | 2017-07-15 17:36 | NUR ---
Activity/blood sugars/cough Pt has been moving around room fairly indpendently, denies any dizziness with change of position. Blood sugars this shift: 135, 195 & 119. Pt consistently 'spitting' up clear fluid. States her breathing has improved. Bed in lowest, locked position and call light in reach.
--- NOTE | 2017-07-15 18:36 | NUR ---
Case Management: IMM explained and signed at 1745, all questions answered. Signed original placed in chart, copy given to patient. Nolvia Mercado RN
[2017-07-16] VITALS (9 sets, daily range): BP systolic 92–138; BP diastolic 54–75; PULSE 60–82; RESP 16–18; O2SAT 94–97
[2017-07-16] MEDS: Sodium Chloride LOK Flush 10 mL Syringe IVFLUSH SCH ×3 (00:54→17:37)
--- NOTE | 2017-07-16 06:29 | NUR ---
Activity, Discharge needs: Pt has been getting up to the bathroom through the night. Was able to get more sleep as coughing has been a bit decreased as compared to last night. Pt has hopes of discharge today with , is from the [facility] and worries about the decreased ferry schedules.
--- NOTE | 2017-07-16 08:43 | PCM.PNMED ---
Subjective Date of Service Jul 16, 2017 Subjective Breathing is improving. No cough or chest pain. No edema. Stress test normal yesterday. No fevers or chills, constipation or diarrhea. No overnight events. Exam Vital Signs Vital Sign - Last Date Time Temp Pulse Resp B/P Pulse Ox O2 Delivery O2 Flow Rate FiO2 07/16/17 04:19 36.9 62 16 138/75 94 Room Air Intake and Output 07/15/17 07/15/17 07/16/17 Cumulative From/Thru 15:00 23:00 07:00 07/14/17 10:54 - 07/16/17 05:48 Intake Total 593 ml 250 ml 1218 ml Output Total 700 ml 600 ml 2275 ml Balance -107 ml -350 ml -1057 ml Intake Oral 593 ml 250 ml 1093 ml IV Total 125 ml Output Urine Total 700 ml 600 ml 2275 ml # Bowel Movements 0 0 0 Exam Alert and in no distress Fluent speech Anicteric sclera Lungs with base rales, normal rate heart regular without murmur. Abdomen soft, non tender No edema No rash. IVs and Medications Medications Reviewed: Medications were reviewed in detail Lab and Diagnostics Result Diagram: 07/15/1751607/15/17516 X-Rays, CTs and MRIs PROCEDURE: CT ANGIO CHEST PULMONARY EMBOLISM ([id number]) INDICATIONS: chest pain TECHNIQUE: After the administration of intravenous contrast, 2 mm thick sections acquired from the pulmonary apices to the posterior costophrenic angles. 3-dimensional maximum intensity projection (MIP) coronal and sagittal reformats were then acquired through the thorax. For radiation dose reduction, the following was used: automated exposure control, adjustment of mA and/or kV according to patient size. COMPARISON: [facility], CR, XR CHEST 2VW, 07/14/2017, 11:24. FINDINGS: Image quality: There is mild respiratory motion artifact. Pulmonary arteries: Pulmonary arteries are normal in size, and demonstrate no intraluminal filling defects to suggest central pulmonary embolism. Evaluation of subsegmental branches is limited due to respiratory motion artifact. Lungs and pleura: There are patchy bilateral ground glass opacities in the lungs with mild septal thickening. Mild dependent atelectasis is present bilaterally. No focal consolidation. No pleural effusions or pneumothorax. Central and peripheral airways are patent. Mediastinum: Heart size is normal, without pericardial effusion. There is extensive coronary arterial vascular calcification. No mediastinal or hilar adenopathy. Thoracic aorta is normal in caliber and enhancement. Esophagus is normal in caliber, with a small hiatal hernia. Bones and chest wall: No suspicious bony lesions. Ribs and thoracic spine appear intact throughout. No axillary or supraclavicular adenopathy. Abdomen: Visualized upper abdominal solid organs appear normal in the early arterial phase of enhancement. IMPRESSION: 1. No evidence of central pulmonary embolism. Evaluation of distal subsegmental branches is limited due to respiratory motion artifact. 2. Bilateral groundglass opacities and septal thickening in the lungs compatible with pulmonary edema. Dictated by: Jagdish Hernández M.D. on 07/14/2017 at 14:54 Approved by: Jagdish Hernández M.D. on 07/14/2017 at 14:56 12-lead ECG AV dual paced complexes with a rate of 62 and QTC 42 Cardiac Echo Impressions Echocardiogram Report Name: AMANDEEP VILCHIS Study Date: 08/24/2012 Height: 64 in Hospital Exam Location: [facility] Weight: 130 lb Gender: Female BSA: 1.6 meters2 : 1935 Age: 77 yrs BP: 110/52 mmHg Reason For Study: Chest pain History: CABG X 4 IN 1999 Ordering Physician: Hermes Fenton Performed By: Carlos Wright Interpretation Summary Left ventricular systolic function is normal. The ejection fraction is estimated to be 55-60%. There is a pacemaker lead in the right ventricle. Right atrial size is normal. There is mild to moderate tricuspid regurgitation. Compared to the prior echo exam, there has been no change in TR severity. No other signficant changes since last echo study of 12/11/2010. Assessment & Plan # Acute diastolic congestive heart failure, unclear if diastolic versus systolic , present on admission. Improving. -Get current echocardiogram study done -IV Lasix 40 mg twice a day -Serial cardiac enzymes -Placed on telemetry -Continue with Plavix -Check Lexiscan nuclear stress test which is done today and results pending -Continue with Coreg and losartan -one more day diuresis. #History of coronary artery disease, present on admission and stable -Normal Lexiscan #Type II diabetes, chronic, present on admission stable. -Continue her Lantus dosing at half dose because will be nothing by mouth for stress test -Placed on subcutaneous correction dose insulin -Check hemoglobin A1c -Continue with simvastatin #DVT prophylaxis -SCDs and subcutaneous Lovenox #CODE STATUS Full code Anticipate discharge home to [facility] tomorrow, [facility] Prophylaxis: Proton Pump Inhibitor VTE Prophylaxis: Sub-Q Enoxaparin, SCDs Resuscitation Status: CPR: Attempt Resuscitation Narendra Gayle MD Jul 16, 2017 08:43
[2017-07-16] MEDS: Insulin GLARgine 100 Unit/mL Syringe SUBQ SCH (09:27)
[2017-07-16] MEDS: Insulin LISPRO 300 Unit/3 mL Inj SUBQ SCH ×4 (09:28→20:25)
[2017-07-16] MEDS: Furosemide 10 mg/mL 4 mL Inj IVPUSH SCH ×2 (09:29→17:36)
[2017-07-16] MEDS: Pantoprazole 40 mg ER24 Tablet PO SCH (09:29)
--- NOTE | 2017-07-16 11:32 | NUR ---
Dizziness: Patient complained of sudden dizziness when getting up to toilet. Requested BG check, which was 203. Ortho's obtained- Lying BP 120/68 HR 65; Sitting 107/67 HR 82; Standing 92/59 HR 81. On reassessment, patient states dizziness has decreased. MD florian paged. Will follow. Addendum: 07/16/17 at 1201 by NIEVES BLACKMON RN Encouraged to call for assistance to BR, call light within reach. Patient agreed.
--- NOTE | 2017-07-16 17:18 | NUR ---
Social Work-readiness for discharge/multidisciplinary rounds: Data:EMR reviewed. Pt is on day 2 of hospitalization for chest pain per H&P. Pt is not medically stable anticipate tomorrow. Pt has been up independent in her room. SW followed up with pt at bedside, SW role explained. Pt informed SW that her daughter is working on coordinating pt's to catch the ferry tomorrow to come and pick pt up, pt declining having SW call her family. Pt is sure that her daughter will have all of this coordinated. SW explained that priority boarding pass will be provided for the ferry at discharge( placed in folder). SW will continue to follow. Assessment:pt who is independent at baseline. Plan:Pt to discharge home when medically stable via POV. Pt's to catch the ferry from [place] and come and pick pt up. Priority boarding pass will be provided for the ferry at discharge( placed in folder). SW will continue to follow. LICO Albrihgt
[2017-07-16] MEDS: Ondansetron 2 mg/mL 2 mL Inj IVPUSH PRN (23:59)
[2017-07-17 00:05] VITALS: PULSE 67
--- NOTE | 2017-07-17 00:08 | NUR ---
nausea / low blood sugar patient complains of nausea. medicated with zofran 4mg. slow iv push. patient requests sugar to be checked accucheck 76. given orange juice. will recheck in 30 min. asypmtomatic. Addendum: 07/17/17 at 0052 by PATRICE DUNAWAY RN reheck blood sugar : 86. patient reports "i feel better." nausea improved.
[2017-07-17] MEDS: Sodium Chloride LOK Flush 10 mL Syringe IVFLUSH SCH ×2 (00:30→08:39)
[2017-07-17 00:36] VITALS: BP 124/71; PULSE 61; RESP 20; O2SAT 94
[2017-07-17 05:33] VITALS: BP 125/62; PULSE 62; RESP 20; O2SAT 94
[2017-07-17] MEDS: Ondansetron 2 mg/mL 2 mL Inj IVPUSH PRN (05:38)
[2017-07-17 08:00] VITALS: PULSE 61
[2017-07-17] MEDS: Furosemide 10 mg/mL 4 mL Inj IVPUSH SCH (08:00)
[2017-07-17 08:23] VITALS: BP 121/66; PULSE 61; RESP 19; O2SAT 97
[2017-07-17] MEDS: Insulin LISPRO 300 Unit/3 mL Inj SUBQ SCH ×2 (08:38→11:56)
[2017-07-17] MEDS: Pantoprazole 40 mg ER24 Tablet PO SCH (08:38)
[2017-07-17] MEDS: Insulin GLARgine 100 Unit/mL Syringe SUBQ SCH (08:39)
[2017-07-17 09:09] LABS: Magnesium 2.1 mg/dL (1.6-2.6)
[2017-07-17] MEDS ORDERED: 0.9% Sodium Chloride 1,000 ML IV SCH (09:35)
--- NOTE | 2017-07-17 11:54 | PCM.DIMED ---
Discharge Instructions Date of Service Jul 17, 2017 Dates of Hospitalization Jul 14, 2017 at 15:33 Discharge Diagnosis Discharge Diagnosis # Acute diastolic congestive heart failure,improved. # Coronary artery disease, stable (normal stress test). #Type II diabetes, stable. Diet Discharge Diet: Low fat, Low Sodium Activity Discharge Activity: Limited until seen by PCP Call your provider Call your provider for: Shortness of breath, Chest pain Patient Instructions Follow-up Provider: Russell Gray MD Follow-up with PCP in: 1 week Narendra Gayle MD Jul 17, 2017 11:54
[2017-07-17] MEDS ORDERED: FURO-129 PO (11:56)
--- NOTE | 2017-07-17 12:41 | NUR ---
Social Work: Discharge Data & Assessment: EMR reviewed. Patient is on day 3 of hospitalization for chest pain per H&P. Patient was discussed in morning rounds. Patient has been deemed medically stable for discharge today per MD. [employer] has provided patient with paperwork for [facility] [employer]. [facility] instructed [facility] form. Original form has been placed in patient's chart. Plan is for patient to transport via [employer] [place] [facility] to [facility]. Patient has no additional needs at this time. Plan: Patient will discharge home today. Patient will be transported by [facility]. [employer] has provided patient with ferry pass. Patient has no additional needs at this time. LICO Damico
--- NOTE | 2017-07-17 12:59 | NUR ---
Ambulation: Ambulated full length of hallway. Tolerated well, denies pain, dizziness, lightheadedness.
--- NOTE | 2017-07-17 13:52 | PCM.DC.MED ---
Discharge Summary Date of Service Jul 17, 2017 Dates of Hospitalization Date of Hospital Admission Jul 14, 2017 at 15:33 Date of Discharge: Jul 17, 2017 Providers: Admitting Physician: Clau Porras MD Primary Care Physician: Russell Gray MD Attending Physician: Narendra Leon MD Diagnosis at Time of Discharge Diagnosis at Time of Discharge # Acute diastolic congestive heart failure,improved. # Coronary artery disease, stable (normal stress test). #Type II diabetes, stable. Consultations None Procedures XRay, CTs & MRIs PROCEDURE: CT ANGIO CHEST PULMONARY EMBOLISM ([id number]) INDICATIONS: chest pain TECHNIQUE: After the administration of intravenous contrast, 2 mm thick sections acquired from the pulmonary apices to the posterior costophrenic angles. 3-dimensional maximum intensity projection (MIP) coronal and sagittal reformats were then acquired through the thorax. For radiation dose reduction, the following was used: automated exposure control, adjustment of mA and/or kV according to patient size. COMPARISON: [facility], CR, XR CHEST 2VW, 07/14/2017, 11:24. FINDINGS: Image quality: There is mild respiratory motion artifact. Pulmonary arteries: Pulmonary arteries are normal in size, and demonstrate no intraluminal filling defects to suggest central pulmonary embolism. Evaluation of subsegmental branches is limited due to respiratory motion artifact. Lungs and pleura: There are patchy bilateral ground glass opacities in the lungs with mild septal thickening. Mild dependent atelectasis is present bilaterally. No focal consolidation. No pleural effusions or pneumothorax. Central and peripheral airways are patent. Mediastinum: Heart size is normal, without pericardial effusion. There is extensive coronary arterial vascular calcification. No mediastinal or hilar adenopathy. Thoracic aorta is normal in caliber and enhancement. Esophagus is normal in caliber, with a small hiatal hernia. Bones and chest wall: No suspicious bony lesions. Ribs and thoracic spine appear intact throughout. No axillary or supraclavicular adenopathy. Abdomen: Visualized upper abdominal solid organs appear normal in the early arterial phase of enhancement. IMPRESSION: 1. No evidence of central pulmonary embolism. Evaluation of distal subsegmental branches is limited due to respiratory motion artifact. 2. Bilateral groundglass opacities and septal thickening in the lungs compatible with pulmonary edema. Dictated by: Jagdish Hernández M.D. on 07/14/2017 at 14:54 Approved by: Jagdish Hernández M.D. on 07/14/2017 at 14:56 ECG 12 Lead AV dual paced complexes with a rate of 62 and QTC 42 Cardiac Echo Impression Echocardiogram Report Name: AMANDEEP VILCHIS Study Date: 08/24/2012 Height: 64 in Hospital Exam Location: [facility] Weight: 130 lb Gender: Female BSA: 1.6 meters2 : 1935 Age: 77 yrs BP: 110/52 mmHg Reason For Study: Chest pain History: CABG X 4 IN 1999 Ordering Physician: Hermes Fenton Performed By: Carlos Wright Interpretation Summary Left ventricular systolic function is normal. The ejection fraction is estimated to be 55-60%. There is a pacemaker lead in the right ventricle. Right atrial size is normal. There is mild to moderate tricuspid regurgitation. Compared to the prior echo exam, there has been no change in TR severity. No other signficant changes since last echo study of 12/11/2010. Invasive Procedures None Other Diagnostics Date of Service: 07/15/17 1606 PROCEDURE: 1 DAY PHARMACOLOGICAL STRESS TEST INDICATIONS: Chest Pain. COMPARISON: None. Radiopharmaceutical: Stress dose 25.7 mCi of technetium 99 tetrofosmin Rest dose 8.7 mCi of technetium 99 tetrofosmin Patient presentation: The patient is a 81-year-old woman with coronary artery disease status post CABG in 1999, diabetes, hypertension, hyperlipidemia, congestive heart failure and history of pacemaker implant. FINDINGS: Pharmacologic stress test: Following informed consent Lexiscan was infused per protocol. Patient complained of lightheadedness. EKG showed that she was A- sensed and V-paced with occasional PACs. EKG was uninterpretable due to chronic RV pacing. Patient developed 5/10 chest pressure during the stress test. Raw data: Normal myocardial tracer uptake. Lung heart ratio is grossly normal. Myocardial perfusion imaging: There is a small size mild intensity fixed apical perfusion defect. It is most consistent with apical thinning artifact. Quantitative gated SPECT: at peak stress ejection fraction 70%. Rest ejection fraction 60%. There is septal hypokinesis which in the right clinical setting could be due to chronic RV pacing. IMPRESSION: Low risk pharmacologic stress test with myocardial perfusion imaging. No evidence of ischemia or prior infarct. Chronic RV pacing with associated septal hypokinesis. Otherwise normal wall motion and left ventricular systolic function. Compared to prior stress chest performed September 09, 2011, apical thinning artifact is newly described. Paradoxic septal movement is unchanged from prior. Dictated by: Caro Edward M.D. on 07/15/2017 at 17:11 Approved by: Caro Edward M.D. on 07/15/2017 at 17:18 Brief History Is a pleasant 81-year-old female who over the past month has been having progressive symptoms of increasing shortness of breath. She notes cough sometimes productive of some white sputum. She denies any fevers or chills. She was placed on some antibiotics with no improvement in her symptoms by her primary care provider. She also feels more short of breath when she is lying down at night. She also notes that she has some chest pressure and arm pressure occurring at times mostly when she is lying down. She notes that the chest pressure may last for an hour or so. She does have a history of coronary artery disease with a CABG 4 in July 2000 and a pacemaker placed in 2006. Her transmission builder is Dr. Hermes Fenton. Evaluation in the emergency room revealed a slightly high d-dimer chest x-ray was negative. She then had CTA of chest which showed no evidence of central pulmonary emboli. Some respiratory motion artifact to evaluate the distal sub-segmental branches. But did see bilateral groundglass opacities and septal thickening in the lungs compatible with pulmonary edema. Her troponin was noted to be 0.01. Hospital Course # Acute diastolic congestive heart failure, unclear if diastolic versus systolic , present on admission. Improving. -Get current echocardiogram study done -IV Lasix 40 mg twice a day -Serial cardiac enzymes -Placed on telemetry -Continue with Plavix -Check Lexiscan nuclear stress test which is done today and results pending -Continue with Coreg and losartan -one more day diuresis. #History of coronary artery disease, present on admission and stable -Normal Lexiscan #Type II diabetes, chronic, present on admission stable. -Continue her Lantus dosing at half dose because will be nothing by mouth for stress test -Placed on subcutaneous correction dose insulin -Check hemoglobin A1c -Continue with simvastatin #DVT prophylaxis -SCDs and subcutaneous Lovenox #CODE STATUS Full code Hospital course. This patient was admitted for acute on chronic diastolic heart failure. She has had multiple visits to emergency department and [facility]. She was diuresed and had an echocardiogram revealing diastolic dysfunction. She was on telemetry had no arrhythmia. She also had a normal stress test. She was diuresed and felt much better. Objective discharge she was mildly hyponatremic as well as having a very small bump her creatinine consistent with mild over diuresis. She was given saline at 100 mils an hour 2 hours back before being discharged. She will be discharged on Lasix every other day with follow-up with her primary care doctor within a week. Exam Vital Signs (Last) Date Time Temp Pulse Resp B/P Pulse Ox O2 Delivery O2 Flow Rate FiO2 07/17/17 08:23 36.6 61 19 121/66 97 Room Air Exam Patient was seen and examined by day of discharge. Test 07/14/17 11:00 07/14/17 12:08 07/14/17 16:41 07/14/17 18:09 Urine Color Yellow (YELLOW) Urine Appearance Clear (CLEAR,HAZY) Urine pH 7.5 (5.0-8.0) Urine Specific [place] 1.006 (1.003-1.035) Urine Protein Negativemg/dL (NEG,TRACE) Urine Glucose (UA) Negativemg/dL (NEGATIVE) Urine Ketones Negativemg/dL (NEGATIVE) Urine Occult Blood Negative (NEGATIVE) Urine Nitrite Negative (NEGATIVE) Urine Bilirubin Negative (NEGATIVE) Urine Urobilinogen Normalmg/dL (NORMAL) Urine Leukocyte Esterase Negative (NEGATIVE) Urine RBC 0-2/hpf (0-2) Urine WBC 0-5/hpf (0-5) Urine Epithelial Cells Moderate/hpf (NONE-MOD) Urine Crystals None seen (NONE SEEN) Urine Bacteria None/hpf (NONE-FEW) Urine Hyaline Casts None/lpf (NONE) Urine Granular Casts None seen (NONE SEEN) Urine Waxy Casts None seen (NONE SEEN) Urine Red Blood Cell Casts None seen (NONE SEEN) Urine White Blood Cell Casts None seen (NONE SEEN) Urine Mucus None seen (None Seen) Urine Trichomonas None seen (NONE SEEN) Urine Yeast None (NONE SEEN) Urinalysis Comment None Urine Culture Reflexed Not indicated Prothrombin Time 10.7sec (8.1-12.5) Prothromb Time International Ratio 1.00ratio Activated Partial Thromboplast Time 25.7sec (22.8-33.0) D-Dimer 0.60mg/L FEU (<0.50) Thyroid Stimulating Hormone (TSH) 1.760uIU/mL (0.450-4.500) Hemoglobin A1c 6.2% (4.8-5.6) Folate > 19.9ng/mL (>3.0) Test 07/15/17 05:17 07/17/17 05:10 White Blood Count 7.0th/mm3 (3.8-10.1) Red Blood Count 4.29mil/mm3 (3.90-5.20) Hemoglobin 12.6g/dL (12.0-15.6) Hematocrit 37.6% (35.0-46.0) Mean Corpuscular Volume 87.6fL (81-100) Mean Corpuscular Hemoglobin 29.4pg (27.0-35.0) Mean Corpuscular Hemoglobin Concent 33.5% (32.0-37.0) Red Cell Distribution Width 13.5% (12.3-15.4) Platelet Count 234bil/L (150-400) Neutrophils (%) (Auto) 68.5% (40-74) Lymphocytes (%) (Auto) 16.0% (14-46) Monocytes (%) (Auto) 11.2% (4-12) Eosinophils (%) (Auto) 3.6% (0-5) Basophils (%) (Auto) 0.7% (0-3) Total Bilirubin 0.4mg/dL (0.0-1.2) Aspartate Amino Transf (AST/SGOT) 14U/L (0-50) Alanine Aminotransferase (ALT/SGPT) 9U/L (0-32) Alkaline Phosphatase 56U/L (25-165) Total Creatine Kinase 23U/L (21-215) Creatine Kinase MB 1.4ng/mL (0.0-5.3) Creatine Kinase MB % % (0.0-5.0) Troponin T 0.010ug/L (0.0-0.011) Total Protein 5.9g/dL (6.4-8.4) Albumin 3.6g/dL (3.4-5.0) Triglycerides Level 72mg/dL (0-149) Cholesterol Level 136mg/dL (100-199) LDL Cholesterol, Calculated 52mg/dL (0-99) VLDL Cholesterol 14.400mg/dL HDL Cholesterol 70mg/dL (>39) Cholesterol/HDL Ratio 1.94 (0.0-4.4) Sodium Level 130mEq/L (134-144) Potassium Level 4.1mEq/L (3.5-5.2) Chloride Level 88mEq/L (97-108) Carbon Dioxide Level 26mmol/L (18-29) Blood Urea Nitrogen 27mg/dL (8-27) Creatinine 1.23mg/dL (0.57-1.00) Estimat Glomerular Filtration Rate 60mL/min (>59) Glucose Level 140mg/dL (60-99) Calcium Level 8.5mg/dL (8.5-10.1) Magnesium Level 2.1mg/dL (1.6-2.6) Pro-B-Type Natriuretic Peptide 421.8pg/mL (0-738) Discharge Medications Discharge Medications Carvedilol (Carvedilol) 25 Mg Tablet 25 MG PO BID (Reported) Clopidogrel (Clopidogrel) 75 Mg Tablet 75 MG PO QAM (Reported) Furosemide (Lasix) 20 Mg Tablet 20 MG PO every other day Prescribed by: NARENDRA LEON MD Insulin Glargine (Lantus U100 Insulin Vial) 100 Unit/Ml Vial 25 UNITS SUBQ QAM ( Reported) Insulin Regular, Human (Novolin-R U100 Insulin Vial) 100 Unit/1 Ml Vial 3-5 UNITS SQ DAILYWL (Reported) Losartan Potassium (Cozaar) 50 Mg Tablet 50 MG PO BID (Reported) Pantoprazole DR (Pantoprazole DR) 40 Mg Tablet.dr 40 MG PO QAM (Reported) Simvastatin (Zocor) 20 Mg Tablet 20 MG PO HS (Reported) Followup Plan Disposition: Home Discharge Diet: Low fat, Low Sodium Discharge Activity: Limited until seen by PCP Follow-up Provider: Russell Gray MD Follow-up with PCP in: 1 week Time spent 45 minutes Narendra Leon MD Jul 17, 2017 13:52
--- NOTE | 2017-07-17 14:26 | NUR ---
Discharge: Patient discharged to home @ approx 1330. IV d/c'd intact, telemetry removed front desk monitor notified. Personal belongings sent home with patient. Reviewed new prescription, home medications list, discharge instructions and follow up appointments. Verbalized understanding. Escorted to main entrance via wheelchair accompanied by LOG OPERATIONS COORDINATOR.
== END 2017-07-17 13:38 | disposition home or self-care (01) | DRG 293 ==
LOC: SED 10:38 → MPC 15:33 → OBSVTOIN 15:33
PROVIDERS: ADMIT Specialist; ATTEND Hospitalist
DX: I50.31 Acute diastolic (congestive) heart failure (principal); I10 Essential (primary) hypertension; E11.9 Type 2 diabetes mellitus without complications; Z86.73 Personal history of transient ischemic attack (TIA), and cerebral infarction without residual deficits; Z88.0 Allergy status to penicillin; Z79.4 Long term (current) use of insulin; Z79.51 Long term (current) use of inhaled steroids; Z95.1 Presence of aortocoronary bypass graft; Z95.0 Presence of cardiac pacemaker